=== PATIENT | female | born 1960 | race Caucasian/White ===

== ENCOUNTER 2024-03-25 10:28 | Day surgery (SDC) | payer OTHER ==
[~2024-03-25] VITALS: Ht 165.1 cm; Wt 74.8 kg
[2024-03-25] MEDS ORDERED: fentaNYL citrate 0.05 MG/ML VIAL ONE (12:00)
[2024-03-25] MEDS ORDERED: LIDOCAINE 2% 100 MG/5 ML UJET TP ONE (12:00)
[2024-03-25] MEDS: fentaNYL citrate 0.05 MG/ML VIAL IVP ONE (12:52)
== END 2024-03-25 13:28 | disposition home or self-care (01) ==
LOC: MOR 10:28 → MMU 10:31 → MOR 13:28
PROVIDERS: ATTEND Internal Medicine Gastroenterology
DX: R19.5 Other fecal abnormalities (principal); K64.8 Other hemorrhoids; Z98.51 Tubal ligation status; Z88.6 Allergy status to analgesic agent; Z79.899 Other long term (current) drug therapy; Z98.890 Other specified postprocedural states
CPT/HCPCS: 45378; J3010